=== PATIENT | male | born 1955 | race Caucasian/White ===

== ENCOUNTER 2022-07-12 07:26 | Day surgery (SDC) | payer BC, MEDICARE ==
[2022-07-07 09:14] LABS: BASOPHILS % (AUTO) 0.8 % (0-1); EOSINOPHILS # (AUTO) 0.1 X10'3 (0-0.9); EOSINOPHILS % (AUTO) 1.8 % (0-6); HEMOGLOBIN 15.4 g/dl (14.0-17.9); LYMPHOCYTES # (AUTO) 1.6 X10'3 (1.1-4.8); LYMPHOCYTES % (AUTO) 28.7 % (21-51); MEAN CORPUSCULAR HEMOGLOBIN 29.8 PG (27.0-31.0); MEAN CORPUSCULAR HGB CONC 33.4 g/dL (33.0-36.5); MEAN CORPUSCULAR VOLUME 89.1 FL (78-98); MEAN PLATELET VOLUME 7.6 FL (7.4-10.4); MONOCYTES # (AUTO) 0.5 X10'3 (0-0.9); MONOCYTES % (AUTO) 8.4 % (2-12); NEUTROPHILS # (AUTO) 3.3 X10'3 (1.8-7.7); NEUTROPHILS % (AUTO) 60.3 % (42-75); PLATELET COUNT 227 X10'3 (140-440); RED BLOOD COUNT 5.16 X10'6 (4.70-6.10); RED CELL DISTRIBUTION WIDTH 14.2 % (11.5-14.5); WHITE BLOOD COUNT 5.4 X10'3 (4.5-11.0)
[2022-07-07 09:27] LABS: APTT 28 SECONDS (22-32)
[2022-07-07 09:39] LABS: ALBUMIN 4.3 G/DL (3.4-5.0); ANION GAP 5 (8-16); BLOOD UREA NITROGEN 22 MG/DL (7-18); BUN/CREATININE RATIO 18.8 (5.4-32.0); CALCIUM 9.7 MG/DL (8.5-10.1); CHLORIDE 104 MMOL/L (99-107); CHOL/HDL RATIO 3.4 (0.00-4.99); CHOLESTEROL 182 MG/DL (0-200); CREATININE 1.17 MG/DL (0.60-1.10); GLUCOSE 119 MG/DL (70-104); HDL CHOLESTEROL 53 MG/DL (35-60); LDL CHOLESTEROL 117 MG/DL (50-100); SODIUM 139 MMOL/L (135-145); TOTAL CARBON DIOXIDE 30.2 MMOL/L (24-32); TRIGLYCERIDES 75 MG/DL (20-135); eGFR 63 ML/MIN
[~2022-07-12] VITALS: Ht 182.9 cm; Wt 84.4 kg
[2022-07-12] VITALS (9 sets, daily range): BP systolic 100–147; BP diastolic 61–113
[2022-07-12] MEDS ORDERED: diphenhydrAMINE 25mg capsule PO PRN (07:40)
[2022-07-12] MEDS ORDERED: normal saline 1,000 ML IV SCH (07:40)
[2022-07-12] MEDS ORDERED: LORazepam 0.5 MG tablet PO PRN (07:40)
[2022-07-12] MEDS ORDERED: ROSU10TA2 PO (08:05)
[2022-07-12] MEDS ORDERED: EMPA10TA PO (08:05)
[2022-07-12] MEDS ORDERED: MULT-1085 PO (08:05)
[2022-07-12] MEDS ORDERED: BISO10TA16 PO (08:05)
[2022-07-12] MEDS ORDERED: EPLE25TA4 PO (08:05)
[2022-07-12] MEDS ORDERED: ASPI-1053 PO (08:05)
[2022-07-12] MEDS ORDERED: DOXY40CP PO (08:05)
[2022-07-12] MEDS ORDERED: SACU1TAB PO (08:05)
[2022-07-12] MEDS ORDERED: midazolam 1 mg/ML 2ml injection ONE (09:36)
[2022-07-12] MEDS ORDERED: LIDOcaine 1% (10mg/ml) 2ml vial ONE (09:36)
[2022-07-12] MEDS ORDERED: iohexol 350MG/ML 100ml bottle IV ONE (09:36)
[2022-07-12] MEDS ORDERED: nitroGLYCERIN-Tridil 50MG/D5W 250 ML IV ONE (09:36)
[2022-07-12] MEDS ORDERED: heparin 1,000unit/ml 10ml vial 10 ML ONE (09:36)
[2022-07-12] MEDS ORDERED: verapamil 2.5 mg/ml inj IV ONE (09:36)
[2022-07-12] MEDS ORDERED: fentaNYL/PF 50MCG/1 ML 2ML syringe ONE (09:36)
[2022-07-12] MEDS ORDERED: HYDROcodone/acetaminophen 5mg/325mg tablet PO PRN (10:50)
[2022-07-12] MEDS ORDERED: HYDROcodone/acetaminophen 10/325mg tab PO PRN (10:50)
== END 2022-07-12 13:15 | disposition home or self-care (01) ==
LOC: SSTAY O 07:26
PROVIDERS: ATTEND Student in an Organized Health Care Education/Training Program
DX: I11.0 Hypertensive heart disease with heart failure (principal); I50.22 Chronic systolic (congestive) heart failure; I25.10 Atherosclerotic heart disease of native coronary artery without angina pectoris; I42.9 Cardiomyopathy, unspecified; I34.0 Nonrheumatic mitral (valve) insufficiency; E78.5 Hyperlipidemia, unspecified; Z79.82 Long term (current) use of aspirin; Z79.899 Other long term (current) drug therapy; Z87.01 Personal history of pneumonia (recurrent); Z87.442 Personal history of urinary calculi
CPT/HCPCS: 36415; 80048; 80061; 85025; 85610; 85730; 93005; 93458; A6258; C1769; C1894; J1644; J2250; J3010; J3490; J7030; Q0163; Q9967; 99152; 99153